=== PATIENT | male | born 1965 | race Caucasian/White ===

== ENCOUNTER 2017-02-21 10:38 | Emergency (ER) | payer MEDICARE, MEDICAID ==
[~2017-02-21] VITALS: Ht 172.7 cm; Wt 95.5 kg
[~2017-02-21 10:38] MED LIST: BENA25TA8 PO; CITA20TA4 PO; DICY10CA13 PO; DILAUDID PUMP; DOXE25CA2 PO; GLIM2TAB PO; LISI-360 PO; LOVA20TA PO; METF1000 PO; OMPR20CCR PO; OXYC-68 PO; PLAV75TA PO; TAB-TAB PO
[2017-02-21 10:39] VITALS: BP 102/55; PULSE 82; RESP 20; TEMP 98.6; O2SAT 99
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
[2017-02-21] MEDS ORDERED: METF1000 PO (11:03)
[2017-02-21] MEDS ORDERED: MULT-135 PO (11:03)
[2017-02-21] MEDS ORDERED: GLIM4TAB PO (11:03)
[2017-02-21] MEDS ORDERED: FISH1000 PO (11:03)
[2017-02-21] MEDS ORDERED: CITA20TA4 PO (11:03)
[2017-02-21] MEDS ORDERED: AMBI10TA PO (11:03)
[2017-02-21] MEDS ORDERED: TOPI1TAB97 PO (11:03)
[2017-02-21] MEDS ORDERED: OMEP20TA PO (11:03)
[2017-02-21] MEDS ORDERED: DICY10 PO (11:03)
[2017-02-21] MEDS ORDERED: PLAV75TA29 PO (11:03)
[2017-02-21] MEDS ORDERED: LISI10TA3 PO (11:03)
[2017-02-21] MEDS ORDERED: LOVA20TA PO (11:03)
[2017-02-21 13:00] VITALS: BP 106/69; TEMP 97.8
== END 2017-02-21 13:00 | disposition home or self-care (01) ==
LOC: NEPD 10:38
DX: S70.02XA Contusion of left hip, initial encounter (principal); G89.29 Other chronic pain; E11.9 Type 2 diabetes mellitus without complications; I10 Essential (primary) hypertension; V03.00XA Pedestrian on foot injured in collision with car, pick-up truck or van in nontraffic accident, initial encounter; Z79.01 Long term (current) use of anticoagulants
CPT/HCPCS: 99283